=== PATIENT | male | born 1980 | race Caucasian/White ===

== ENCOUNTER 2020-10-16 15:17 | Emergency (ER) | payer MEDICAID ==
[2020-10-16] MEDS ORDERED: Alum Hydrox/Mag Hydrox/Simeth 15 ML, Lidocaine 2% 15 ML PO ONE ×2 (16:06)
--- NOTE | 2020-10-16 16:12 | EDM.PDOC ---
ED HPI GENERAL MEDICAL PROBLEM - General Chief Complaint: Abdominal Pain Stated Complaint: ABD PAIN Time Seen by Provider: 10/16/20 15:55 Source of Information: Reports: Patient History Limitations: Reports: Other (no old records) - History of Present Illness INITIAL COMMENTS - FREE TEXT/NARRATIVE: 40 yo male presents with epigastric pain for about a week. Has had nausea but no vomiting. No diarrhea, constipation, or melena. No fever. No hx of the same. Has not been to his doctor for this. No self tx. Pain is worse when he eats. No hx of abdominal surgeries. Onset: Gradual Onset Date: 10/09/20 Duration: Week(s): (1), Constant Location: Reports: Abdomen (upper) Quality: Reports: Ache Severity: Moderate Improves with: Reports: None Worsens with: Reports: Eating Context: Reports: Other (See HPI) Associated Symptoms: Reports: Nausea/Vomiting (no vomiting). 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 Denies: Black Stool, Bloody Stool, Constipation, Diarrhea, Distension, Hematemesis, Hematochezia, Melena, Vomiting : Reports: No Symptoms Musculoskeletal: Reports: No Symptoms Skin: Reports: No Symptoms Neurological: Reports: No Symptoms ED EXAM, GI/ABD - Physical Exam Exam: See Below Exam Limited By: No Limitations General Appearance: Alert, WD/WN, No Apparent Distress Eyes: Bilateral: Normal Appearance Ears: Normal External Exam, Normal Canal, Hearing Grossly Normal Nose: Normal Inspection, No Blood Throat/Mouth: Normal Inspection, Normal Lips, Normal Oropharynx, Normal Voice, No Airway Compromise Head: Atraumatic, Normocephalic Neck: Normal Inspection Respiratory/Chest: No Respiratory Distress, Lungs Clear, Normal Breath Sounds, No Accessory Muscle Use Cardiovascular: Regular Rate, Rhythm, No Edema GI/Abdominal Exam: Soft, No Distention, Tender (epigastrium only), Abnormal Bowel Sounds (increased). No: Normal Bowel Sounds, Non-Tender, Distended, Guarding, Rigid, Rebound Back Exam: Normal Inspection. No: CVA Tenderness (R), CVA Tenderness (L) Extremities: Normal Inspection, Normal Range of Motion, Non-Tender, No Pedal Edema. No: Pedal Edema Neurological: Alert, Oriented, CN II-XII Intact, Normal Cognition, No Motor/Sensory Deficits Psychiatric: Normal Affect, Normal Mood Skin Exam: Warm, Dry, Intact, Normal Color, No Rash Course - Vital Signs Last Recorded V/S: Last Vital Signs Temp 36.4 C 10/16/20 15:57 Pulse 59 L 10/16/20 15:57 Resp 16 10/16/20 15:57 BP 110/72 10/16/20 15:57 Pulse Ox 100 10/16/20 15:57 - Orders/Labs/Meds Meds: Medications Discontinued Medications Generic Name Dose Route Start Last Admin Trade Name Joe PRN Reason Stop Dose Admin Al Hydroxide/Mg Hydroxide 15 0 ml 10/16/20 16:06 ml/ Lidocaine HCl 15 ml PO 10/16/20 16:07 ONETIME ONE - Re-Assessments/Exams Free Text/Narrative Re-Assessment/Exam: 10/16/20 16:50 got a phone call from a daughter and decided he needed to leave. Departure - Departure Time of Disposition: 16:30 Disposition: Against Medical Advice 07 Condition: Fair Clinical Impression: Epigastric pain - Discharge Information *PRESCRIPTION DRUG MONITORING PROGRAM REVIEWED*: Not Applicable *COPY OF PRESCRIPTION DRUG MONITORING REPORT IN PATIENT KRISTEL: Not Applicable Instructions: Abdominal Pain, Adult, [id number] Referrals: PCP,None [Primary Care Provider] - Forms: ED Department Discharge Sepsis Event Note (ED) - Focused Exam Vital Signs: Vital Signs Temp Pulse Resp BP Pulse Ox 10/16/20 15:57 36.4 C 59 L 16 110/72 100
== END 2020-10-16 16:31 | disposition left against medical advice (07) ==
LOC: JP.ED 15:17
DX: R10.13 Epigastric pain (principal)
CPT/HCPCS: 99283